=== PATIENT | male | born 1995 | race Caucasian/White ===

== ENCOUNTER 2020-10-14 12:22 | Emergency (ER) | payer OTHER ==
[~2020-10-14] VITALS: Ht 172.7 cm; Wt 68.0 kg
== END 2020-10-14 14:24 | disposition home or self-care (01) ==
LOC: ED 12:22
DX: R11.10 Vomiting, unspecified (principal); F19.10 Other psychoactive substance abuse, uncomplicated; R10.13 Epigastric pain; F17.200 Nicotine dependence, unspecified, uncomplicated
CPT/HCPCS: 80053; 83690; 85025; 96374; 99284-25; J2765; J7030